=== PATIENT | male | born 1985 | race African-American/Black ===

== ENCOUNTER 2019-05-04 13:46 | Emergency (ER) | payer BC ==
--- NOTE | 2019-05-04 14:54 | EDM.PDOC ---
ED HPI GENERAL MEDICAL PROBLEM - General Chief Complaint: Lower Extremity Injury/Pain Stated Complaint: RT HEEL PAIN Time Seen by Provider: 05/04/19 14:03 Source of Information: Reports: Patient History Limitations: Reports: No Limitations - History of Present Illness INITIAL COMMENTS - FREE TEXT/NARRATIVE: The patient presents with right heal pain. This started last night. He slipped on his deck and twisted his foot and he has pain to the medial heal. He has no ankle pain. He has pain with walking. Onset: Sudden Duration: Day(s): (Last night) Location: Reports: Lower Extremity, Right (heal) Quality: Reports: Sharp Severity: Moderate Improves with: Reports: Immobilization Worsens with: Reports: Movement Context: Reports: Trauma Associated Symptoms: Reports: No Other Symptoms Right Foot Pain Score (Numeric/FACES): 8 - Related Data Allergies Allergy/AdvReac Type Severity Reaction Status Date / Time No Known Allergies Allergy Verified 05/04/19 14:05 Home Meds: Home Meds . [No Known Home Meds] 05/04/19 [History] Past Medical History - Past Health History Medical/Surgical History: Denies Medical/Surgical History - Infectious Disease History Infectious Disease History: Reports: None Social & Family History - Tobacco Use Smoking Status *Q: Current Every Day Smoker Years of Tobacco use: 10 Packs/Tins Daily: 0.5 - Caffeine Use Caffeine Use: Reports: Coffee - Recreational Drug Use Recreational Drug Use: No Review of Systems - Review of Systems Review Of Systems: See Below Constitutional: Reports: No Symptoms Eyes: Reports: No Symptoms Ears: Reports: No Symptoms Nose: Reports: No Symptoms Mouth/Throat: Reports: No Symptoms Respiratory: Reports: No Symptoms Cardiovascular: Reports: No Symptoms GI/Abdominal: Reports: No Symptoms Genitourinary: Reports: No Symptoms Musculoskeletal: Reports: Other (right heal pain) ED EXAM, GENERAL - Physical Exam Exam: See Below Exam Limited By: No Limitations General Appearance: Alert, No Apparent Distress Ears: Normal External Exam Nose: Normal Inspection Head: Atraumatic, Normocephalic Neck: Normal Inspection Respiratory/Chest: No Respiratory Distress Extremities: Other (pain upon palpation to the right inner heal. No swelling. Good sensation and pulses distally.) Course - Vital Signs Last Recorded V/S: Last Vital Signs Temp 98.4 F 05/04/19 14:03 Pulse 83 05/04/19 14:03 Resp 16 05/04/19 14:03 BP 179/92 H 05/04/19 14:03 Pulse Ox 99 05/04/19 14:03 - Orders/Labs/Meds Orders: Active Orders 24 hr Category Date Time Status Foot Comp Min 3V Rt [CR] Stat Exams 05/04/19 14:09 Taken - Re-Assessments/Exams Free Text/Narrative Re-Assessment/Exam: 05/04/19 15:05 I ordered an x-ray and it shows nothing acute. I will give him some crutches and a splint. Departure - Departure Time of Disposition: 15:10 Disposition: Home, Self-Care 01 Condition: Good Clinical Impression: Right foot sprain Qualifiers: Encounter type: initial encounter Qualified Code(s): S93.601A - Unspecified sprain of right foot, initial encounter - Discharge Information *PRESCRIPTION DRUG MONITORING PROGRAM REVIEWED*: Not Applicable *COPY OF PRESCRIPTION DRUG MONITORING REPORT IN PATIENT PRATIMA: Not Applicable Referrals: PCP,None [Primary Care Provider] - Agustin Robles MD [Physician] - 2 Weeks Forms: ED Department Discharge, ED Return to Work/School Form Additional Instructions: Ice your foot for 15 minutes 3 times per day for 2 days. Elevate your foot as much as you can for 2 days. Use the crutches and splint as needed. Take tylenol or motrin for pain. Sepsis Event Note - Evaluation Sepsis Screening Result: No Definite Risk - Focused Exam Vital Signs: Vital Signs Temp Pulse Resp BP Pulse Ox 05/04/19 14:03 98.4 F 83 16 179/92 H 99 Date Exam was Performed: 05/04/19 Time Exam was Performed: 15:05 - My Orders Last 24 Hours: My Active Orders 05/04/19 14:09 Foot Comp Min 3V Rt [CR] Stat - Assessment/Plan Last 24 Hours: My Active Orders 05/04/19 14:09 Foot Comp Min 3V Rt [CR] Stat
--- NOTE | 2019-05-04 17:55 | CR ---
Right foot: 4 views the right foot were obtained. Comparison: Oh prior right foot exam. Joint spaces are preserved. No fracture, dislocation or other bony abnormality is identified. Impression: 1. No abnormality is appreciated on right foot exam. Diagnostic code #1 This report was dictated in [place] Standard Time
== END 2019-05-04 15:48 | disposition home or self-care (01) ==
LOC: JD.ED 13:46
DX: S93.601A Unspecified sprain of right foot, initial encounter (principal); F17.210 Nicotine dependence, cigarettes, uncomplicated; X50.1XXA Overexertion from prolonged static or awkward postures, initial encounter
CPT/HCPCS: 73630-26-RT; 73630-RT; 99282; 99283-25

== ENCOUNTER 2021-07-30 01:15 | Emergency (ER) | payer SELFPAY ==
[2021-07-30] MEDS ORDERED: Bupivacaine 0.5% 10 ML SDV INJECT ONE (01:59)
[2021-07-30] MEDS ORDERED: Lidocaine 1% with EPINEPHrine 1:100,000 10 ML MDV INJECT ONE (01:59)
== END 2021-07-30 04:16 | disposition home or self-care (01) ==
LOC: JD.ED 01:15
DX: S02.69XA Fracture of mandible of other specified site, initial encounter for closed fracture (principal); S01.81XA Laceration without foreign body of other part of head, initial encounter; F10.129 Alcohol abuse with intoxication, unspecified; Z72.0 Tobacco use; Y04.0XXA Assault by unarmed brawl or fight, initial encounter
CPT/HCPCS: 12011; 70486; 99284; J3490; 99285